=== PATIENT | female | born 1965 | race African-American/Black ===

== ENCOUNTER 2018-03-12 21:58 | Emergency (ER) | payer OTHER ==
[~2018-03-12] VITALS: Ht 182.9 cm; Wt 82.0 kg
[2018-03-13] MEDS ORDERED: ONDANSETRON HCL 4MG/2ML VIAL IV STA (02:59)
[2018-03-13] MEDS ORDERED: KETOROLAC 30MG/ML VIAL IV STA (02:59)
[2018-03-13] MEDS ORDERED: FAMOTIDINE 20MG/2ML VIAL IV STA (02:59)
[2018-03-13] MEDS ORDERED: SODIUM CHLORIDE 0.9% 1,000 ML IV ONE (02:59)
[2018-03-13 04:02] LABS: BASOPHILS % 0.9 % (0.0-2.0); EOSINOPHILS % 1.5 % (0.0-5.0); HEMOGLOBIN. 14.5 g/dL (12.0-16.0); LYMPHOCYTES % 37.1 % (20.0-50.0); MEAN CORPUSCULAR HEMOGLOBIN 29.3 pg (28.0-32.0); MEAN CORPUSCULAR VOLUME 88.9 fL (81.0-99.0); MEAN PLATELET VOLUME 8.3 fl (7.4-10.4); MONOCYTES % 8.2 % (2.0-8.0); NEUTROPHILS % 52.3 % (40.0-76.0); PLATELET 366 x1000/uL (130-400); RED BLOOD CELL COUNT 4.94 mill/uL (4.2-5.4); RED CELL DISTRIBUTION WIDTH 15.4 % (11.6-14.6)
[2018-03-13 04:04] LABS: CHLORIDE 102 mEq/L (98-107); INR 1.1; PROTHROMBIN TIME 11.3 sec (9.4-11.6)
[2018-03-13 04:08] LABS: HCG SCREEN NEGATIVE
[2018-03-13 04:11] LABS: ETHANOL BLOOD < 10 mg/dL
[2018-03-13 04:24] LABS: CLARITY URINE TURBID (CLEAR); COLOR URINE DARK YELLOW (YELLOW); KETONES URINE NEGATIVE (NEGATIVE); LEUKOCYTE ESTERASE URINE 2+ (NEGATIVE); NITRITE URINE NEGATIVE (NEGATIVE); OCCULT BLOOD URINE 2+ (NEGATIVE); PROTEIN URINE TRACE (NEGATIVE); SPECIFIC GRAVITY URINE 1.023 (1.005-1.030)
[2018-03-13] MEDS ORDERED: CEFTRIAXONE 1 G PREMIX 50 ML IV ONE (04:30)
[2018-03-13 04:33] LABS: *AMPHETAMINES SCREEN URINE NEGATIVE (NEGATIVE); *BARBITURATES SCREEN URINE NEGATIVE (NEGATIVE)
[2018-03-13 04:34] LABS: *BENZODIAZEPINES SCREEN URINE NEGATIVE (NEGATIVE); *COCAINE SCREEN URINE NEGATIVE (NEGATIVE); CANNABINOID URINE SCREEN PRESUMTIVE POSITIVE (NEGATIVE); METHADONE URINE SCREEN NEGATIVE (NEGATIVE); OPIATES URINE SCREEN NEGATIVE (NEGATIVE); PHENCYCLIDINE URINE SCREEN NEGATIVE (NEGATIVE)
[2018-03-13 07:40] VITALS: BP 134/94
== END 2018-03-13 09:45 | disposition home or self-care (01) ==
LOC: ER 21:58
DX: N39.0 Urinary tract infection, site not specified (principal); N20.0 Calculus of kidney; R19.7 Diarrhea, unspecified; F31.9 Bipolar disorder, unspecified; Z88.0 Allergy status to penicillin; Z90.710 Acquired absence of both cervix and uterus
CPT/HCPCS: 36415; 74176; 80053; 80305; 81003; 83605; 83690; 84703; 85025; 85610; 87086; 93005; 96361; 96365; 96375; 99285; G0482; J1885; J2405; J3490; J7030; Z7610

== ENCOUNTER 2020-07-19 18:08 | Emergency (ER) | payer OTHER ==
[~2020-07-19] VITALS: Ht 185.4 cm; Wt 91.0 kg
[2020-07-19] MEDS ORDERED: DIPHENHYDRAMINE 50MG CAPSULE PO ONE (18:45)
[2020-07-19] MEDS ORDERED: PREDNISONE 20MG TABLET PO ONE (18:45)
[2020-07-19 19:25] VITALS: BP 105/75
== END 2020-07-19 19:57 | disposition home or self-care (01) ==
LOC: ER 18:08
DX: T78.49XA Other allergy, initial encounter (principal); X58.XXXA Exposure to other specified factors, initial encounter; F31.9 Bipolar disorder, unspecified; I10 Essential (primary) hypertension; Z90.710 Acquired absence of both cervix and uterus; Z88.1 Allergy status to other antibiotic agents
CPT/HCPCS: 99283; J7512; Q0163